=== PATIENT | female | born 1950 | race Caucasian/White ===

== ENCOUNTER 2017-06-01 11:52 | Emergency (ER) | payer MEDICARE, OTHER ==
[~2017-06-01] VITALS: Ht 124.5 cm; Wt 39.9 kg
[2017-06-01 12:54] LABS: ABSOLUTE BASOPHILS 0.1 thou/uL (0.0-0.2); ABSOLUTE LYMPHOCYTES 1.8 thou/uL (0.8-5.3); ABSOLUTE MONOCYTES 0.8 thou/uL (0.0-1.2); ABSOLUTE NEUTROPHILS 6.1 thou/uL (1.6-8.1); BASOPHILS 0.9 %; EOSINOPHILS 0.2 %; HEMATOCRIT 46.4 % (37.0-47.0); HEMOGLOBIN 15.6 gm/dL (12.0-15.0); LYMPHOCYTES 20.7 %; MCH 31.6 pg (26.0-34.0); MCHC 33.6 g/dL (28.0-37.0); MONOCYTES 9.1 %; MPV 7.1 fl. (7.2-11.1); NUCLEATED RBCS 0 /100WBC; PLATELET COUNT* 274 thou/uL (150-400); POLYS 69.1 %; RBC 4.94 mil/uL (4.20-5.00); RDW-CV 12.4 % (10.5-14.5); WBC 8.9 thou/uL (4.0-11.0)
[2017-06-01 12:55] LABS: BE 5.5 mmol/L (-2 to +3); HCO3 31.3 mmol/L (22.0-26.0); PCO2 49.2 mmHg (35.0-45.0); PO2 63.8 mmHg (75.0-100.0); pH 7.421 (7.340-7.450)
[2017-06-01 13:01] LABS: CALCIUM 8.4 mg/dL (8.5-10.1); CREATININE 0.6 mg/dL (0.6-1.3); POTASSIUM 4.1 mmol/L (3.5-5.1)
[2017-06-01 13:06] LABS: ALBUMIN 3.3 g/dL (3.4-5.0); TOTAL BILIRUBIN 0.3 mg/dL (<0.1-1.0); TOTAL PROTEIN 6.5 g/dL (6.4-8.2)
[2017-06-01 13:36] LABS: URINE BILIRUBIN NEGATIVE (Negative); URINE BLOOD 1+ (Negative); URINE CLARITY CLEAR; URINE COLOR YELLOW; URINE GLUCOSE-RANDOM NEGATIVE (Negative); URINE KETONES 2+ (Negative); URINE LEUKOCYTES-REFLEX NEGATIVE (Negative); URINE NITRITE-REFLEX NEGATIVE (Negative); URINE PROTEIN NEGATIVE (Negative); URINE UROBILINOGEN 0.2 E.U./dl (0.2-1.0)
[2017-06-01 13:47] LABS: SQUAMOUS 4-10 Moderate /LPF (0-3); URINE WBC-REFLEX None Seen /HPF (0-5)
[2017-06-01 13:48] LABS: BACTERIA-REFLEX None Seen /HPF (None Seen); CASTS None Seen /LPF (None Seen); CRYSTALS None Seen /LPF (None Seen); MUCUS None Seen strn/LPF (None Seen); URINE RBC 3-10 Few /HPF (0-2)
[2017-06-01] MEDS ORDERED: NEBULIZER MISCELL (15:07)
[2017-06-01] MEDS ORDERED: DUONEB 2.5-0.5 M3 ML INH (15:08)
[2017-06-01 15:16] VITALS: BP 144/76
== END 2017-06-01 15:20 | disposition home or self-care (01) ==
LOC: M.ERS 11:52
PROVIDERS: Personal Emergency Response Attendant
DX: B34.9 Viral infection, unspecified (principal); Z98.890 Other specified postprocedural states; Z88.1 Allergy status to other antibiotic agents; Z88.2 Allergy status to sulfonamides; Z88.4 Allergy status to anesthetic agent; Z88.5 Allergy status to narcotic agent; Z88.0 Allergy status to penicillin; Z88.8 Allergy status to other drugs, medicaments and biological substances

== ENCOUNTER 2018-06-27 17:07 | Inpatient (IN) | payer MEDICARE, OTHER ==
[~2018-06-27] VITALS: Ht 149.9 cm; Wt 97.1 kg
[~2018-06-27 17:07] MED LIST: DUONEB 2.5-0.5 M3 ML INH; NEBULIZER MISCELL
[2018-06-27 17:09] VITALS: BP 120/89
[2018-06-27 17:51] LABS: HEMATOCRIT 46.9 % (37.0-47.0); HEMOGLOBIN 15.5 gm/dL (12.0-15.0); MCHC 33.1 g/dL (28.0-37.0); MCV 96.8 fL (80.0-100.0); MPV 7.4 fl. (7.2-11.1); NUCLEATED RBCS 0 /100WBC; PLATELET COUNT* 216 thou/uL (150-400); RBC 4.84 mil/uL (4.20-5.00); WBC 8.5 thou/uL (4.0-11.0)
[2018-06-27 17:55] LABS: INFLUENZA B ANTIGEN None Detected (None Detect)
[2018-06-27 18:03] LABS: BE 9.6 mmol/L (-2 to +3); PO2 85.6 mmHg (75.0-100.0); pH 7.303 (7.340-7.450)
[2018-06-27 18:18] LABS: ALBUMIN 3.4 g/dL (3.4-5.0); ALKALINE PHOSPHATASE 76 U/L (46-116); ANION GAP 7 mmol/L (7-16); BUN 25 mg/dL (7-18); CALCIUM 8.8 mg/dL (8.5-10.1); CHLORIDE 99 mmol/L (98-107); CO2 36 mmol/L (21-32); CREATININE 0.8 mg/dL (0.6-1.3); GLUCOSE 105 mg/dL (70-99); MAGNESIUM 2.5 mg/dL (1.8-2.4); NT-PRO BRAIN NAT PEPTIDE 1254 pg/mL (<300); POTASSIUM 5.1 mmol/L (3.5-5.1); SGOT 74 U/L (15-37); SGPT 51 U/L (30-65); SODIUM 142 mmol/L (136-145); TOTAL BILIRUBIN 0.1 mg/dL (<0.1-1.0); TOTAL PROTEIN 6.7 g/dL (6.4-8.2)
[2018-06-27 18:20] LABS: TROPONIN-I LEVEL <0.06 ng/mL (<0.06)
[2018-06-27 18:23] LABS: ABSOLUTE LYMPHOCYTES 0.6 thou/uL (0.8-5.3); ABSOLUTE MONOCYTES 1.6 thou/uL (0.0-1.2); ABSOLUTE NEUTROPHILS 6.3 thou/uL (1.6-8.1)
[2018-06-27 18:25] LABS: PLATELET ESTIMATE ADEQUATE
[2018-06-27 21:11] VITALS: BP 156/77
[2018-06-28 04:00] VITALS: BP 128/65
[2018-06-28 05:11] LABS: ABSOLUTE LYMPHOCYTES 0.6 thou/uL (0.8-5.3); ABSOLUTE MONOCYTES 1.1 thou/uL (0.0-1.2); ABSOLUTE NEUTROPHILS 6.9 thou/uL (1.6-8.1); BASOPHILS 0.2 %; HEMATOCRIT 43.5 % (37.0-47.0); HEMOGLOBIN 14.3 gm/dL (12.0-15.0); LYMPHOCYTES 7.1 %; MCH 32.2 pg (26.0-34.0); MCHC 32.8 g/dL (28.0-37.0); MCV 98.2 fL (80.0-100.0); MPV 7.2 fl. (7.2-11.1); NUCLEATED RBCS 0 /100WBC; PLATELET COUNT* 197 thou/uL (150-400); POLYS 79.7 %; RBC 4.43 mil/uL (4.20-5.00); RDW-CV 12.7 % (10.5-14.5); WBC 8.7 thou/uL (4.0-11.0)
[2018-06-28 05:40] LABS: CREATININE 0.5 mg/dL (0.6-1.3); POTASSIUM 4.8 mmol/L (3.5-5.1)
--- NOTE | 2018-06-28 07:36 | NUR ---
REPORT RECEIVED FROM FRANCHESKA IN ER @ 2032. PT ARRIVED TO ROOM @ 2100. ASSISTED PT WITH NIGHT HYGEINE AND TO COMMODE. RT SWITCHED PT FROM O2 TO BIPAP. PT WAS ANXIOUS ABOUT KEEPING BIPAP ON. HAD TO GIVE PT REASSURANCE FOR SEVERAL MINUTES WHILE WEARING BIPAP. PT FINALLY ABLE TO KEEP BIPAP ON AND FALL ASLEEP. CALL LIGHTG IN REACH. HOURLY ROUNDING FOR SAFETY.
[2018-06-28 08:00] VITALS: BP 102/63
--- NOTE | 2018-06-28 09:59 | NUR ---
Nutrition: Pt assessed for low BMI. Wt: 84#. Regular diet. Albumin 3.4. Per chart review, pt refuses steroids, smoker, DNR. ?hospice care. Unsure of po intake today. Underweight R/T body frame AEB BMI 17.1. RD ordered Ensure Enlive for added kcals. Mild risk.
--- NOTE | 2018-06-28 10:12 | EKG ---
[place] [address] ELECTROCARDIOGRAM REPORT Name: JOVANY YANCEY Room: [address] ADM IN [facility].#: [id number] Admission: 06/27/18 Attend Phys: Radha Sanchez MD Discharge: Date of : 52 Report #: [id number] THIS REPORT FOR: //name// [facility] ED Test Date: 2018-06-27 Test Time: 17:51:16 Pat Name: JOVANY YANCEY Department: Room: [facility] Gender: F Title Search Manager: Patrick BROWLNEE : 1950 Requested By: Mckenzie Thakur Order Number: [id number] MD: Enrique Quinones Measurements Intervals Fitzpatrick Rate: 101 P: 77 MN: 108 QRS: 91 QRSD: 90 T: 72 QT: 353 QTc: 458 Interpretive Statements Sinus tachycardia Probable left atrial enlargement Right axis deviation Compared to ECG 08/27/2006 13:16:33 Right-axis deviation now present Sinus rhythm no longer present Electronically Signed On 06-28-2018 10:12:42 CDT by Enrique Quinones [email or web address] <ELECTRONICALLY SIGNED> By: Enrique Quinones MD, FACC 06/28/18 1012 1751 1751 Enrique Quinones MD, [facility] /EPI
[2018-06-28 11:30] VITALS: BP 112/53
--- NOTE | 2018-06-28 15:36 | NUR ---
Pt sound asleep when CM went to assess, will f/u later
[2018-06-28 16:00] VITALS: BP 120/60
--- NOTE | 2018-06-28 16:19 | NUR ---
Pt is A&O. Resides at home with . in room. Per , Pt is refusing treatment and want to have a hospice info meeting. Spoke with Benoit at [facility], he will come out to complete an info visit around 6pm this evening. DC logistics planner faxed referral. Pt could be ready to dc to home tomorrow. Following.
--- NOTE | 2018-06-28 16:23 | NUR ---
PATIENTS TRANSPORTER FAXED REFERRAL TO [facility]. CM WILL REMAIN AVAILABLE TO ASSIST AND FOLLOW NEEDED.
[2018-06-28 20:00] VITALS: BP 125/62
--- NOTE | 2018-06-28 20:00 | NUR ---
RECEIVED REPORT AND ASSUMED CARE OF PT, ASSESSMENT COMPLETED. PT SITTING UP IN BED, O2 ON AT 4L/NC, DYSPNEIC. DISCUSSED BIPAP AT HS, PT NOT WANTING IT BECAUSE OF SUFFICATION FEELING. WILL CONT TO MONITOR AND ASSIST NEEDED.
[2018-06-29] VITALS: BP 125/59
[2018-06-29 04:00] VITALS: BP 112/51
--- NOTE | 2018-06-29 06:30 | NUR ---
AWAKE FREQ DURING NIGHT, ANXIOUS AND SCARED ABOUT DYING AND PUTTING HER THROUGH THIS. REASSURANCE GIVEN AND SAT WITH PT APPROX 1 1/2 HR LETTING HER TALK. LUNG SOUND INCREASINGLY MOIST AND CONGESTED, STOPPED IV FLUIDS. ASSISTED TO BSC, PT IS BECOMING WEAKER. HS GOALS OF REST AND SAFETY PARTICALLY ACHIEVED. HOURLY ROUNDING OBSERVED.
[2018-06-29 08:00] VITALS: BP 134/53
--- NOTE | 2018-06-29 11:00 | NUR ---
Following for d/c planning needs. Per nurse, pt is not ready for d/c today.
[2018-06-29 12:05] VITALS: BP 134/65
[2018-06-29 16:00] VITALS: BP 122/65
[2018-06-29 20:00] VITALS: BP 156/79
[2018-06-30] VITALS: BP 107/52
--- NOTE | 2018-06-30 01:40 | NUR ---
PT ALERT ORIENTED. UP TO BSC WITH ASSIST OF ONE. MEDSURG STATUS. DENIES PAIN. O2 AT 4 LITERS. NO LONGER USING BIPAP HS. REFUSED HS MEDICATION ENOXAPARIN. WITH PT.
[2018-06-30 09:00] VITALS: BP 158/87
[2018-06-30 12:18] VITALS: BP 128/62
[2018-06-30 16:23] VITALS: BP 98/59
--- NOTE | 2018-06-30 18:43 | NUR ---
ASSUMED PT CARE REPORT RECEIVED FROM NURSE. PT IS ALERT AOx4 . MEDSURG STATUS. DYSPNEA NOTED AT BEDSIDE. O2 SAT 80% ON 4 L NC.BIPAP APPLIED. O2 UP TO 93% ON BIPAP. PT REFUSED ALL TREATMENTS. IS AWARE. WILL CONTINUE TO MONITOR PT.
[2018-06-30 20:00] VITALS: BP 120/64
[2018-07-01 04:00] VITALS: BP 170/73
--- NOTE | 2018-07-01 04:34 | NUR ---
ASSUMED PT CARE AT 1930. NURSING ASSESSMENT COMPLETED. PT MED SURG STATUS. ON 12 LITERS O2 VIA HFNC.PT DENIES PAIN, REFUSED BIPAP THIS SHIFT. HIGH FALL RISK PRECAUTIONS IN PLACE, HOURLY ROUNDING COMPLETED. CALL LIGHT WITHIN REACH.
[2018-07-01 08:00] VITALS: BP 115/61
--- NOTE | 2018-07-01 10:30 | NUR ---
JESSICA spoke with Benoit from [facility], he informed that the info visit on Sunday went well, Pt and were to discuss hospice over the weekend and contact Benoit today with their decision. Following.
--- NOTE | 2018-07-01 11:50 | NUR ---
ASSUMED PT CARE REPORT RECEIVED FROM NURSE PT IS AOX3 FORGETFUL LETHARGIC SAYS SHE DID NOT SLEEP LAST NIGHT. ON 15 L HIGH FLOW. BREATHING TREAMENT BEING DONE SCHEDULED. VSS. WILL CONTINUE TO MONITOR PT.
[2018-07-01] MEDS ORDERED: IPRAT-ALBUT 0.5-3 ML INH (12:46)
--- NOTE | 2018-07-01 13:38 | NUR ---
Pt discharging to home today with [facility]. DME to be delivered prior to Pt discharging, Pt is now requiring 15L of oxygen and did not wear home o2 prior. CM to arrange ambulance dc. Faxed orders and o2, bipap orders.
--- NOTE | 2018-07-01 14:13 | CON ---
[address] [address] CONSULTATION Name: JOVANY YANCEY Room: [address] IN ..#: [id number] Admission: 06/27/18 Attend Phys: Radha Sanchez MD Discharge: Date of : 52 Report #: [id number] THIS REPORT FOR: //name// CC: Radha Sanchez DATE OF SERVICE: 06/30/2018 REQUESTING PHYSICIAN: Dr. Evans. INDICATION FOR CONSULTATION: Influenza/COPD exacerbation. HISTORY OF PRESENT ILLNESS: This is a 67-year-old female. The patient states that she believes that she is allergic to essentially all prescription medications other than nebulized bronchodilators. She says that her allergy to prescription medicines is complete and if she is allergic to each and every one of them, specifically she states that she is allergic to STEROIDS as well as all antibiotics and is allergic to TAMIFLU as well; therefore, wants to be treated without use of any prescription medications. The patient is admitted here with COPD exacerbation. She also is positive for influenza A. Has had increasing shortness of breath, has been coughing, has some increase in sputum production as well. There is no chest pain. There are no upper respiratory complaints. No increase in swelling of lower extremities or calf pain. This morning, the patient's shortness of breath had worsened further. She was briefly on BiPAP. She had desaturations up to the low 80s with 5 liters of oxygen in place. She eventually was able to come off BiPAP, currently is again on 4-5 liters of oxygen, maintaining O2 saturation in the low 90s. Note that the patient is not on supplemental oxygen at home. She has had some joint pains, which are at baseline. I asked her 12 questions for review of systems, she answered to the negative except as mentioned above. PAST MEDICAL HISTORY: COPD. I do not have previous PFTs available. She is not on supplemental oxygen at home. SOCIAL HISTORY: She is an active smoker. CURRENT MEDICATIONS: List in [employer] reviewed. ALLERGIES: She lists all prescription medications as her allergies. I obviously do not believe that this is correct. PHYSICAL EXAMINATION: GENERAL: She is alert, [place] [address] CONSULTATION Name: JOVANY YANCEY Room: [address]#: [id number] Admission: 06/27/18 Attend Phys: Radha Sanchez MD Discharge: Date of : 52 Report #: [id number] VITAL SIGNS: Has a pulse of 97 and a blood pressure of 158/87, saturating 92% on 4 liters nasal cannula, respiratory rate 24. She is afebrile, temperature of 36.8. NECK: Does not show raised JVP. CHEST: Markedly decreased breath sounds bilaterally. Expirations are prolonged. HEART: Regular, no murmur. ABDOMEN: Soft and nontender. EXTREMITIES: Lower extremities show no edema, no calf tenderness. LABORATORY DATA: The patient's lab work is in [employer], reviewed. Last available chest x-ray is from 06/27/2018 and this is also in [employer], reviewed. ASSESSMENT AND PLAN: 1. Acute on chronic hypercarbic respiratory failure. The patient is declining use of any prescription medications, which makes it very difficult to provide any additional support at this time. If the patient is agreeable, then I would recommend continuing with the BiPAP while asleep as well as p.r.n. and also continue to titrate oxygen as indicated. There appears to be a significant chronic component of her respiratory failure in addition to acute. 2. Influenza A. I feel that she will still benefit from Tamiflu if started at this time. Unfortunately, the patient does not agree to take Tamiflu. 3. Chronic obstructive pulmonary disease exacerbation. Recommend use of IV Solu-Medrol, continue nebulized bronchodilators. I feel that there are some basilar pulmonary infiltrates as well; therefore, I favor use of a broad-spectrum antibiotic as well. The patient declined all therapy other than DuoNeb against my advice. 4. Active smoker. Obviously, smoking cessation is recommended. As the patient is declining all prescription medications other than DuoNeb at this time, it is not possible to provide optimal care to this patient. We will do a chest x-ray and see where we stand; however, our options considering the patient's desire to not take any medications may be limited. Thanks for consultation. <ELECTRONICALLY SIGNED> By: Marly Linda MD 07/01/18 1413 1127 [id number] Contreras MD /jacquelyn
[2018-07-01 14:37] VITALS: BP 115/61
--- NOTE | 2018-07-01 15:25 | NUR ---
dischage pending until trnsportation is set up. discharge instructions given to pt.
--- NOTE | 2018-07-01 16:01 | NUR ---
Pt discharging to home today with [facility], ambulance to cigar packer and picker and transport at 5pm. went home to received home o2. Faxed order to [facility]
--- NOTE | 2018-07-01 17:30 | NUR ---
PT LEFT FLOOR WITH EMS ON 15 L HIGH FLOW O2. HAD ALEREADY BEEN HOME TO RECEIVE HOME O2 DELIVERY.
== END 2018-07-01 17:19 | disposition hospice, home (50) | DRG 193 ==
LOC: M.ERS 17:07 → M.2W 19:14 → M.TBA-ER 19:14 → M.2W 21:14
PROVIDERS: Physician Assistant; ADMIT Family Medicine
PROC: 5A09357 Assistance with Respiratory Ventilation, Less than 24 Consecutive Hours, Continuous Positive Airway Pressure (ICD-10-PCS; principal; 2018-06-28)
PROC: 5A09357 Assistance with Respiratory Ventilation, Less than 24 Consecutive Hours, Continuous Positive Airway Pressure (ICD-10-PCS; 2018-06-30)
DX: J10.1 Influenza due to other identified influenza virus with other respiratory manifestations (principal); J96.21 Acute and chronic respiratory failure with hypoxia; J96.22 Acute and chronic respiratory failure with hypercapnia; J44.1 Chronic obstructive pulmonary disease with (acute) exacerbation; J98.11 Atelectasis; F17.210 Nicotine dependence, cigarettes, uncomplicated; G35 Multiple sclerosis; Z66 Do not resuscitate; Z88.1 Allergy status to other antibiotic agents; Z88.2 Allergy status to sulfonamides; Z88.8 Allergy status to other drugs, medicaments and biological substances

== ENCOUNTER 2020-02-05 16:19 | Emergency (ER) | payer MEDICARE ==
[~2020-02-05] VITALS: Ht 149.9 cm; Wt 40.8 kg
[~2020-02-05 16:19] MED LIST changes: +IPRAT-ALBUT 0.5-3 ML INH
[2020-02-05 16:42] VITALS: BP 156/101
== END 2020-02-05 16:53 | disposition home or self-care (01) ==
LOC: M.ERS 16:19
DX: T80.62XA Other serum reaction due to vaccination, initial encounter (principal); R22.0 Localized swelling, mass and lump, head; Z88.1 Allergy status to other antibiotic agents; Z88.8 Allergy status to other drugs, medicaments and biological substances; Y92.89 Other specified places as the place of occurrence of the external cause